=== PATIENT | female | born 1960 | race Two or more races ===

== ENCOUNTER 2017-04-14 20:54 | Emergency (ER) | payer BC, OTHER ==
[~2017-04-14] VITALS: Ht 157.5 cm; Wt 65.8 kg
[2017-04-14] MEDS ORDERED: METOPROLOL (21:37)
[2017-04-14] MEDS ORDERED: GABAPENTIN 100MG CAPSULES (21:37)
[2017-04-14] MEDS ORDERED: SUCCINATE (21:37)
[2017-04-14] MEDS ORDERED: ACET-2154 (21:38)
--- NOTE | 2017-04-14 23:45 | NUR ---
Patient walked into ER with friend, reports was bending over, does housekeeping, and felt sharp pain on back. Ibuprofen administered.
--- NOTE | 2017-04-15 | NUR ---
Dr. Rinaldi at bedside for MSE.
[2017-04-15] MEDS ORDERED: IBUPROFEN 800 MG TABLET ONE (00:02)
[2017-04-15] MEDS: IBUPROFEN 800 MG TABLET PO ONE (00:06)
--- NOTE | 2017-04-15 00:30 | NUR ---
Patient refused norco, reports that medication gives her nausea and vomiting, requests something else for pain, MD notified.
[2017-04-15] MEDS ORDERED: HYDROCODONE/APAP 5-325MG TABLET ONE (00:49)
[2017-04-15] MEDS: HYDROCODONE/APAP 5-325MG TABLET PO ONE (00:54)
[2017-04-15 01:16] LABS: *BILIRUBIN,URIN NEGATIVE (NEGATIVE); *BLOOD, URINE NEGATIVE (NEGATIVE); *CLARITY,URINE CLEAR (CLEAR); *COLOR,URINE YELLOW (YELLOW); *KETONES,URINE NEGATIVE (NEGATIVE); *PROTEIN,URINE NEGATIVE (NEGATIVE); *UROBILINOGEN,URINE 0.2 E.U./dl (NORMAL); LEUKOCYTE ESTERASE ,URINE NEGATIVE (NEGATIVE); NITRITE, URINE NEGATIVE (NEGATIVE); PH,URINE 6.5 (5.0-8.0); UGLUCOSE NEGATIVE (NEGATIVE)
[2017-04-15 01:17] LABS: BACTERIA,URINE NONE SEEN /HPF (NONE SEEN); RBC,URINE NONE SEEN /HPF (0-3); SQUAMOUS EPITHELIAL CELL,UR FEW /HPF (NONE SEEN); WBC,URINE 0-3 /HPF (0-3)
[2017-04-15] MEDS ORDERED: TRAMADOL HCL 50 MG TABLET ONE (01:24)
[2017-04-15] MEDS: TRAMADOL HCL 50 MG TABLET PO ONE (01:41)
--- NOTE | 2017-04-15 02:00 | NUR ---
Patient discharged to home in stable conditon. Written and verbal after care instructions given. Patient verbalizes understanding of instructions. Patient ambulated out of ER with steady gait, VSS, no acute signs of distress, all belongings taken, accompanied by friend who will drive her via private vehicle.
[2017-04-15 03:22] VITALS: BP 122/68
== END 2017-04-15 02:00 | disposition home or self-care (01) ==
LOC: ER 20:56
DX: R10.9 Unspecified abdominal pain (principal); I10 Essential (primary) hypertension; Z79.899 Other long term (current) drug therapy
CPT/HCPCS: A4663

== ENCOUNTER 2022-09-20 06:32 | Emergency (ER) | payer BC, OTHER ==
[~2022-09-20] VITALS: Ht 157.5 cm; Wt 63.5 kg
[~2022-09-20 06:32] MED LIST: ACET-2154; GABAPENTIN 100MG CAPSULES; METOPROLOL; SUCCINATE
[2022-09-20] MEDS ORDERED: LOSA100T31 PO (06:48)
[2022-09-20] MEDS ORDERED: METO-358 PO (06:48)
[2022-09-20] MEDS ORDERED: KETOROLAC TROMETHAMINE 15 MG INJ ONE (07:08)
[2022-09-20] MEDS ORDERED: KETOROLAC TROMETHAMINE 15 MG INJ IM ONE (07:15)
[2022-09-20] MEDS ORDERED: TRAM50TA2 PO (07:40)
[2022-09-20] MEDS ORDERED: LIDO30AD10 TP (07:40)
[2022-09-20 07:57] VITALS: BP 165/91; TEMP 98.6; O2SAT 100
== END 2022-09-20 07:58 | disposition home or self-care (01) ==
LOC: ER 06:32
DX: M85.811 Other specified disorders of bone density and structure, right shoulder (principal); M25.411 Effusion, right shoulder; I10 Essential (primary) hypertension; I48.91 Unspecified atrial fibrillation; Z79.899 Other long term (current) drug therapy
CPT/HCPCS: 99283; 96372; J1885; A4663

== ENCOUNTER 2023-02-23 05:32 | Day surgery (SDC) | payer BC, OTHER ==
[~2023-02-23 05:32] MED LIST changes: -ACET-2154; -GABAPENTIN 100MG CAPSULES; +LIDO30AD10 TP; +LOSA100T31 PO; +METO-358 PO; -METOPROLOL; -SUCCINATE; +TRAM50TA2 PO
[2023-02-23 06:30] LABS: BASOPHILS % (AUTO) 0.2 % (0.0-2.0); EOSINOPHILS # (AUTO) 0.1 K/uL (0.0-0.7); EOSINOPHILS % (AUTO) 0.7 % (0.0-7.0); HEMATOCRIT 42.1 % (31.2-41.9); HEMOGLOBIN 14.2 g/dL (10.9-14.3); LYMPHOCYTES # (AUTO) 1.8 K/uL (0.8-4.8); LYMPHOCYTES % (AUTO) 19.1 % (20.5-51.5); MEAN CORPUSCULAR HEMOGLOBIN 29.5 uug (24.7-32.8); MEAN CORPUSCULAR HGB CONC 34 g/dL (32.3-35.6); MEAN CORPUSCULAR VOLUME 87.1 fL (75.5-95.3); MONOCYTES # (AUTO) 0.7 K/uL (0.1-1.30); NEUTROPHILS # (AUTO) 6.9 K/uL (1.8-8.9); PLATELET COUNT (AUTO) 229 K/uL (179-408); RED BLOOD CELL COUNT(AUTO) 4.83 MIL/uL (3.63-4.92); RED CELL DISTRIBUTION WIDTH 13.8 % (12.3-17.7); WHITE BLOOD COUNT (AUTO) 9.4 K/uL (3.8-11.8)
[2023-02-23 06:48] LABS: ALBUMIN 4.2 g/dL (3.4-5.0); BILIRUBIN,TOTAL 1.3 mg/dL (0.2-1.0); CALCIUM 9.6 mg/dL (8.5-10.1); CREATININE 0.7 mg/dL (0.6-1.3); POTASSIUM 3.8 mmol/L (3.5-5.1); TOTAL PROTEIN, SERUM 8.1 g/dL (6.4-8.2)
[2023-02-23] MEDS ORDERED: FENTANYL CITRATE 100 MCG/2 ML AMPUL ONE (06:55)
[2023-02-23 06:59] LABS: DIFFERENTIAL COMMENT 1
[2023-02-23 10:00] VITALS: TEMP 97.8
== END 2023-02-23 10:20 | disposition home or self-care (01) ==
LOC: DS 05:32
PROVIDERS: ATTEND Internal Medicine Gastroenterology
DX: R10.9 Unspecified abdominal pain (principal); R10.13 Epigastric pain; K29.50 Unspecified chronic gastritis without bleeding; K21.00 Gastro-esophageal reflux disease with esophagitis, without bleeding; K21.9 Gastro-esophageal reflux disease without esophagitis; K44.9 Diaphragmatic hernia without obstruction or gangrene; K64.8 Other hemorrhoids; Z86.010 Personal history of colon polyps; I11.0 Hypertensive heart disease with heart failure; I50.9 Heart failure, unspecified; F41.9 Anxiety disorder, unspecified; Z79.899 Other long term (current) drug therapy; Z98.890 Other specified postprocedural states
CPT/HCPCS: 36415; 71045; 85025; 85730; 88313-TC; 88342; 93005; A4663; J3010; J7120